=== PATIENT | male | born 1960 | race African-American/Black ===

== ENCOUNTER 2020-08-24 10:26 | Inpatient (IN) ==
[2020-08-24 11:05] LABS: Basophils # 0.1 10*3/uL (0.0-0.2); Basophils % 0.9 % (0.0-0.8); Eosinophils % 0.2 % (0.00-10.9); Hematocrit 49.9 VOL% (42.0-52.0); Hemoglobin 16.6 GM/DL (14.0-18.0); Immature Granulocytes % 5.4 %; Lymphocytes % 21.7 % (21.2-54.2); Mean Corpuscular HGB Conc 33.3 GM/DL (32-36); Mean Corpuscular Volume 90.1 FL (87-102); Mean Platelet Volume 10.3 FL (9.6-12.0); Monocytes % 13.2 % (1.7-12.7); Neutrophils % 58.6 % (38.7-73.9); Platelet Count 224 T/CUMM (130-400); Red Blood Count 5.54 MC/CUMM (3.8-5.5); Red Cell Distribution Width 13.7 % (9.3-17.3); White Blood Count 9.2 T/CUMM (4-12)
[2020-08-24 11:16] LABS: INR 1.1; PT Patient Result 11.5 SECS (9.8-11.9); Partial Thromboplastin Time 26.5 SECS (23.9-33.8)
[2020-08-24 11:24] LABS: Eosinophils 1 % (0-10); Lymphocytes 19 % (20-55); Platelet Estimate Adequate; Segmented Neutrophils 63 % (50-85); Total Cells Counted 100
[2020-08-24 11:25] LABS: Hypochromasia Slight
[2020-08-24] MEDS ORDERED: SODIUM CHLORIDE 0.9% 1,000 ML IV STA (11:30)
[2020-08-24] MEDS ORDERED: cefTRIAXone 2,000 MG in SODIUM CHLORIDE 0.9% 100 ML IV ONE (11:31)
[2020-08-24 11:33] LABS: Albumin 3.7 G/DL (3.4-5.0); Bilirubin,Total 1.1 MG/DL (0.2-1.0); Calcium 9.4 MG/DL (8.5-10.1); Osmolality,Calculated 269.4 MOS/KG (273-304); Total Protein 8.7 G/DL (6.4-8.3)
[2020-08-24 11:34] LABS: Ferritin 1633.7 ng/ml (26-388)
[2020-08-24] MEDS ORDERED: HYDROmorphone 2 MG/1 ML VIAL IV STA (11:39)
[2020-08-24] MEDS ORDERED: ONDANSETRON 4 MG/2 ML VIAL IV STA (11:39)
[2020-08-24] MEDS ORDERED: ONDANSETRON 4 MG/2 ML VIAL IV PRN (12:38)
[2020-08-24] MEDS ORDERED: LACTULOSE 20 GM/30 ML UDCUP PO PRN (12:41)
[2020-08-24] MEDS ORDERED: SODIUM CHLORIDE 0.9% 0 ML IV ONE (12:49)
[2020-08-24] MEDS ORDERED: cefTRIAXone 1,000 MG VIAL ONE (12:49)
[2020-08-24] MEDS: SODIUM CHLORIDE 0.9% 1,000 ML IV SCH (15:39)
[2020-08-24] MEDS: LORazepam 0.5 MG TABLET PO SCH ×2 (15:39→21:46)
[2020-08-24] MEDS ORDERED: INFLUENZA VIRUS VACCINE 0.5 ML SYRINGE IM ONE (17:54)
[2020-08-24] MEDS: HYDROmorphone 2 MG/1 ML VIAL IV PRN ×2 (18:27→23:19)
[2020-08-24 20:02] LABS: Bilirubin,Urine Negative (Negative); Blood, Urine Moderate mg/dL (Negative); Glucose,Urine (UA) Negative (Negative); Ketones,Urine 5 mg/dL (Negative); Mucus,Urine Occasional /LPF (Occasional); Nitrite,Urine Negative (Negative); Protein,Urine 100 MG/DL; RBC,Urine 7 /HPF (0-4); Urine Appearance CLOUDY (Clear); Urine Color Yellow (Yellow); Urine Specific Gravity 1.035 (1.001-1.035); WBC,Urine 217 /HPF (0-6)
[2020-08-24] MEDS ORDERED: FUROSEMIDE 20 MG/2 ML VIAL IV ONE (21:12)
[2020-08-24] MEDS ORDERED: GLUCAGON 1 MG VIAL IM PRN (21:17)
[2020-08-24] MEDS ORDERED: DEXTROSE 50% 25 GM/50 ML VIAL IV PRN (21:17)
[2020-08-24 21:24] LABS: Barbiturates Screen,Urine Negative (Negative); Benzodiazepines Screen,Urine Negative (Negative); Cannabinoid Screen,Urine Negative (Negative); Opiate Screen,Urine Positive (Negative); Phencyclidine Screen,Urine Negative (Negative)
[2020-08-24] MEDS: DOCUSATE SODIUM 100 MG CAPSULE PO SCH (21:46)
[2020-08-24] MEDS: ACETAMINOPHEN 325 MG TABLET PO PRN (21:46)
[2020-08-24] MEDS: levETIRAcetam 500 MG TABLET PO SCH (23:20)
[2020-08-25 01:34] LABS: Basophils # 0.1 10*3/uL (0.0-0.2); Basophils % 0.6 % (0.0-0.8); Eosinophils % 0.1 % (0.00-10.9); Hematocrit 46.4 VOL% (42.0-52.0); Hemoglobin 15.8 GM/DL (14.0-18.0); Immature Granulocytes % 0.4 %; Immature Granulocytes Absolute 0.04 #; Lymphocytes # 0.6 10*3/uL (1.4-4.0); Lymphocytes % 6.3 % (21.2-54.2); Mean Corpuscular HGB Conc 34.1 GM/DL (32-36); Mean Corpuscular Volume 88.9 FL (87-102); Mean Platelet Volume 10.4 FL (9.6-12.0); Neutrophils % 85.6 % (38.7-73.9); Platelet Count 165 T/CUMM (130-400); Red Blood Count 5.22 MC/CUMM (3.8-5.5); Red Cell Distribution Width 13.7 % (9.3-17.3); White Blood Count 9.7 T/CUMM (4-12)
[2020-08-25] MEDS: SODIUM CHLORIDE 0.9% 1,000 ML IV SCH ×3 (01:55→14:14)
[2020-08-25 01:57] LABS: Albumin 3.5 G/DL (3.4-5.0); Bilirubin,Total 0.9 MG/DL (0.2-1.0); Calcium 8.8 MG/DL (8.5-10.1); Osmolality,Calculated 268.2 MOS/KG (273-304); Total Protein 8.1 G/DL (6.4-8.3)
[2020-08-25] MEDS: HYDROmorphone 2 MG/1 ML VIAL IV PRN ×4 (03:10→21:13)
[2020-08-25] MEDS: ACETAMINOPHEN 325 MG TABLET PO PRN (05:53)
[2020-08-25] MEDS: amLODIPine 10 MG TABLET PO SCH (08:45)
[2020-08-25] MEDS: FUROSEMIDE 40 MG TABLET PO SCH (08:45)
[2020-08-25] MEDS: PANTOPRAZOLE 40 MG TABLET PO SCH (08:45)
[2020-08-25] MEDS: LORazepam 0.5 MG TABLET PO SCH ×3 (08:45→21:14)
[2020-08-25] MEDS: ASPIRIN EC 81 MG TABLET PO SCH (08:45)
[2020-08-25] MEDS: levETIRAcetam 500 MG TABLET PO SCH ×2 (08:45→21:14)
[2020-08-25] MEDS: DOCUSATE SODIUM 100 MG CAPSULE PO SCH ×2 (08:45→21:14)
[2020-08-25] MEDS: LACTULOSE 20 GM/30 ML UDCUP PO SCH ×2 (08:46→21:14)
[2020-08-25] MEDS: INSULIN REGULAR 100 UNIT/ML SUBCUT SCH ×4 (08:46→21:45)
[2020-08-25] MEDS: cefTRIAXone 500 MG in SYRINGE 1 EACH IV SCH (08:56)
[2020-08-25] MEDS: methylPREDNISolone SOD SUC 40 MG/1 ML VIAL IV SCH ×2 (11:47→17:37)
[2020-08-25] MEDS ORDERED: POLYETHYLENE GLYCOL POWDER 17 GM PACK PO ONE (18:12)
[2020-08-25] MEDS: SIMETHICONE CHEW 80 MG TABLET PO PRN (18:29)
[2020-08-26] MEDS: SODIUM CHLORIDE 0.9% 1,000 ML IV SCH ×6 (01:35→20:57)
[2020-08-26] MEDS: methylPREDNISolone SOD SUC 40 MG/1 ML VIAL IV SCH ×3 (01:49→17:44)
[2020-08-26] MEDS: SIMETHICONE CHEW 80 MG TABLET PO PRN (01:53)
[2020-08-26 05:21] LABS: Hematocrit 40.9 VOL% (42.0-52.0); Hemoglobin 13.9 GM/DL (14.0-18.0); Immature Granulocytes % 0.3 %; Immature Granulocytes Absolute 0.02 #; Lymphocytes # 0.3 10*3/uL (1.4-4.0); Lymphocytes % 3.6 % (21.2-54.2); Mean Corpuscular Volume 90.1 FL (87-102); Mean Platelet Volume 10.9 FL (9.6-12.0); Monocytes % 5.2 % (1.7-12.7); Neutrophils % 90.9 % (38.7-73.9); Platelet Count 106 T/CUMM (130-400); Red Blood Count 4.54 MC/CUMM (3.8-5.5); Red Cell Distribution Width 13.7 % (9.3-17.3); White Blood Count 6.9 T/CUMM (4-12)
[2020-08-26] MEDS: HYDROmorphone 2 MG/1 ML VIAL IV PRN ×2 (05:30→11:43)
[2020-08-26 05:40] LABS: Band Neutrophils 1 % (0-10); Hypochromasia Slight; Lymphocytes 7 % (20-55); Segmented Neutrophils 91 % (50-85); Total Cells Counted 100
[2020-08-26 05:41] LABS: Microcytosis Slight; Platelet Estimate Decreased
[2020-08-26 05:46] LABS: Albumin 3.1 G/DL (3.4-5.0); Bilirubin,Total 0.7 MG/DL (0.2-1.0); Calcium 8.4 MG/DL (8.5-10.1); Total Protein 7.1 G/DL (6.4-8.3)
[2020-08-26] MEDS: INSULIN REGULAR 100 UNIT/ML SUBCUT SCH ×4 (07:25→22:24)
[2020-08-26] MEDS: ASPIRIN EC 81 MG TABLET PO SCH (08:34)
[2020-08-26] MEDS: FUROSEMIDE 40 MG TABLET PO SCH (08:34)
[2020-08-26] MEDS: LORazepam 0.5 MG TABLET PO SCH ×3 (08:34→20:53)
[2020-08-26] MEDS: DOCUSATE SODIUM 100 MG CAPSULE PO SCH ×2 (08:34→20:54)
[2020-08-26] MEDS: amLODIPine 10 MG TABLET PO SCH (08:34)
[2020-08-26] MEDS: levETIRAcetam 500 MG TABLET PO SCH ×2 (08:34→20:56)
[2020-08-26] MEDS: PANTOPRAZOLE 40 MG TABLET PO SCH (08:34)
[2020-08-26] MEDS: LACTULOSE 20 GM/30 ML UDCUP PO SCH ×2 (08:35→22:23)
[2020-08-26] MEDS: cefTRIAXone 500 MG in SYRINGE 1 EACH IV SCH (10:31)
[2020-08-26] MEDS: ACETAMINOPHEN 325 MG TABLET PO PRN ×2 (13:15→18:52)
[2020-08-27] MEDS: HYDROmorphone 2 MG/1 ML VIAL IV PRN ×2 (00:12→14:47)
[2020-08-27] MEDS: methylPREDNISolone SOD SUC 40 MG/1 ML VIAL IV SCH ×3 (02:58→17:34)
[2020-08-27] MEDS: SODIUM CHLORIDE 0.9% 1,000 ML IV SCH ×2 (04:48→14:50)
[2020-08-27 07:09] LABS: Hematocrit 39.3 VOL% (42.0-52.0); Hemoglobin 13.1 GM/DL (14.0-18.0); Immature Granulocytes % 0.2 %; Immature Granulocytes Absolute 0.01 #; Lymphocytes # 0.2 10*3/uL (1.4-4.0); Mean Corpuscular HGB Conc 33.3 GM/DL (32-36); Mean Corpuscular Volume 89.1 FL (87-102); Monocytes % 8.4 % (1.7-12.7); Neutrophils % 87.4 % (38.7-73.9); Red Blood Count 4.41 MC/CUMM (3.8-5.5); Red Cell Distribution Width 13.6 % (9.3-17.3); White Blood Count 5.9 T/CUMM (4-12)
[2020-08-27 07:16] LABS: Platelet Count 92 T/CUMM (130-400)
[2020-08-27 07:33] LABS: Bilirubin,Total 1.3 MG/DL (0.2-1.0); Calcium 8.6 MG/DL (8.5-10.1); Total Protein 6.7 G/DL (6.4-8.3)
[2020-08-27] MEDS: LACTATED RINGERS 1,000 ML IV SCH (07:37)
[2020-08-27 07:39] LABS: Hypochromasia Slight; Lymphocytes 4 % (20-55); Microcytosis Slight; Platelet Estimate Decreased; Segmented Neutrophils 91 % (50-85); Total Cells Counted 100
[2020-08-27] MEDS: INSULIN REGULAR 100 UNIT/ML SUBCUT SCH ×2 (07:39→11:30)
[2020-08-27] MEDS: cefTRIAXone 500 MG in SYRINGE 1 EACH IV SCH (08:06)
[2020-08-27] MEDS ORDERED: propofoL 200 MG/20 ML VIAL IV ONE (09:00)
[2020-08-27] MEDS ORDERED: LIDOCAINE 100 MG/5 ML SYRINGE ONE (09:00)
[2020-08-27] MEDS: DOCUSATE SODIUM 100 MG CAPSULE PO SCH ×2 (09:14→21:09)
[2020-08-27] MEDS: LORazepam 0.5 MG TABLET PO SCH ×3 (09:14→21:09)
[2020-08-27] MEDS: levETIRAcetam 500 MG TABLET PO SCH ×2 (14:46→21:09)
[2020-08-27] MEDS: FUROSEMIDE 40 MG TABLET PO SCH (14:47)
[2020-08-27] MEDS: amLODIPine 10 MG TABLET PO SCH (14:49)
[2020-08-27] MEDS: ASPIRIN EC 81 MG TABLET PO SCH (14:50)
[2020-08-27] MEDS: LACTULOSE 20 GM/30 ML UDCUP PO SCH ×2 (14:50→21:09)
[2020-08-27] MEDS: PANTOPRAZOLE 40 MG TABLET PO SCH (14:50)
[2020-08-27] MEDS: SIMETHICONE CHEW 80 MG TABLET PO PRN (21:09)
[2020-08-28] MEDS: HYDROmorphone 2 MG/1 ML VIAL IV PRN ×3 (02:08→18:02)
[2020-08-28] MEDS: methylPREDNISolone SOD SUC 40 MG/1 ML VIAL IV SCH ×3 (02:12→18:30)
[2020-08-28] MEDS: LACTATED RINGERS 1,000 ML IV SCH (10:39)
[2020-08-28] MEDS: SODIUM CHLORIDE 0.9% 1,000 ML IV SCH ×2 (10:40→15:43)
[2020-08-28] MEDS: DOCUSATE SODIUM 100 MG CAPSULE PO SCH ×2 (10:42→22:45)
[2020-08-28] MEDS: LORazepam 0.5 MG TABLET PO SCH ×2 (10:42→15:43)
[2020-08-28] MEDS: levETIRAcetam 500 MG TABLET PO SCH ×2 (10:44→22:45)
[2020-08-28] MEDS: FUROSEMIDE 40 MG TABLET PO SCH (10:44)
[2020-08-28] MEDS: PANTOPRAZOLE 40 MG TABLET PO SCH (10:45)
[2020-08-28] MEDS: ASPIRIN EC 81 MG TABLET PO SCH (10:45)
[2020-08-28] MEDS: amLODIPine 10 MG TABLET PO SCH (10:50)
[2020-08-28] MEDS: LACTULOSE 20 GM/30 ML UDCUP PO SCH ×2 (10:51→22:45)
[2020-08-28] MEDS: cefTRIAXone 500 MG in SYRINGE 1 EACH IV SCH (10:51)
[2020-08-28] MEDS ORDERED: ACETAMINOPHEN 500 MG TABLET PO PRN (21:38)
[2020-08-28] MEDS: KETOROLAC 15 MG/1 ML VIAL IV SCH (22:45)
[2020-08-29] MEDS: methylPREDNISolone SOD SUC 40 MG/1 ML VIAL IV SCH ×3 (02:38→17:36)
[2020-08-29] MEDS: LORazepam 0.5 MG TABLET PO SCH ×3 (02:58→20:55)
[2020-08-29] MEDS: KETOROLAC 15 MG/1 ML VIAL IV SCH ×3 (05:07→21:00)
[2020-08-29] MEDS: SODIUM CHLORIDE 0.9% 1,000 ML IV SCH ×2 (05:07→17:36)
[2020-08-29] MEDS: SIMETHICONE CHEW 80 MG TABLET PO PRN (05:16)
[2020-08-29 06:50] LABS: Basophils % 0.1 % (0.0-0.8); Hemoglobin 13.6 GM/DL (14.0-18.0); Immature Granulocytes % 0.7 %; Immature Granulocytes Absolute 0.06 #; Lymphocytes # 0.5 10*3/uL (1.4-4.0); Lymphocytes % 5.9 % (21.2-54.2); Mean Corpuscular Volume 88.3 FL (87-102); Mean Platelet Volume 11.3 FL (9.6-12.0); Monocytes % 9.8 % (1.7-12.7); Neutrophils % 83.5 % (38.7-73.9); Platelet Count 112 T/CUMM (130-400); Red Blood Count 4.53 MC/CUMM (3.8-5.5); Red Cell Distribution Width 13.4 % (9.3-17.3); White Blood Count 8.4 T/CUMM (4-12)
[2020-08-29 08:09] LABS: Bilirubin,Total 0.5 MG/DL (0.2-1.0); Calcium 8.8 MG/DL (8.5-10.1); Osmolality,Calculated 275.7 MOS/KG (273-304); Risk Ratio 2.17; Total Protein 6.8 G/DL (6.4-8.3)
[2020-08-29] MEDS: lisinopriL 10 MG TABLET PO SCH (08:18)
[2020-08-29] MEDS: levETIRAcetam 500 MG TABLET PO SCH ×2 (08:19→20:55)
[2020-08-29] MEDS: PANTOPRAZOLE 40 MG TABLET PO SCH (08:19)
[2020-08-29] MEDS: ASPIRIN EC 81 MG TABLET PO SCH (08:19)
[2020-08-29] MEDS: FUROSEMIDE 40 MG TABLET PO SCH (08:19)
[2020-08-29] MEDS: DOCUSATE SODIUM 100 MG CAPSULE PO SCH ×2 (08:19→20:55)
[2020-08-29] MEDS: amLODIPine 10 MG TABLET PO SCH (08:19)
[2020-08-29] MEDS: LACTULOSE 20 GM/30 ML UDCUP PO SCH ×2 (08:20→22:06)
[2020-08-29] MEDS: cefTRIAXone 500 MG in SYRINGE 1 EACH IV SCH (08:24)
[2020-08-29] MEDS: HYDROmorphone 2 MG/1 ML VIAL IV PRN (13:15)
[2020-08-30] MEDS: SIMETHICONE CHEW 80 MG TABLET PO PRN ×2 (02:27→21:07)
[2020-08-30] MEDS: methylPREDNISolone SOD SUC 40 MG/1 ML VIAL IV SCH ×5 (02:27→17:35)
[2020-08-30] MEDS: SODIUM CHLORIDE 0.9% 1,000 ML IV SCH ×3 (04:16→16:15)
[2020-08-30] MEDS: KETOROLAC 15 MG/1 ML VIAL IV SCH ×4 (05:00→21:08)
[2020-08-30 06:38] LABS: Albumin 3.2 G/DL (3.4-5.0); Osmolality,Calculated 280.4 MOS/KG (273-304); Total Protein 6.9 G/DL (6.4-8.3)
[2020-08-30] MEDS: levETIRAcetam 500 MG TABLET PO SCH ×2 (08:23→21:08)
[2020-08-30] MEDS: POTASSIUM CHLORIDE 20 MEQ TABLET PO PRN ×4 (08:24→16:13)
[2020-08-30] MEDS: FUROSEMIDE 40 MG TABLET PO SCH (08:24)
[2020-08-30] MEDS: amLODIPine 10 MG TABLET PO SCH (08:24)
[2020-08-30] MEDS: DOCUSATE SODIUM 100 MG CAPSULE PO SCH ×2 (08:24→21:08)
[2020-08-30] MEDS: lisinopriL 10 MG TABLET PO SCH (08:24)
[2020-08-30] MEDS: LORazepam 0.5 MG TABLET PO SCH ×2 (08:24→21:07)
[2020-08-30] MEDS: ASPIRIN EC 81 MG TABLET PO SCH (08:24)
[2020-08-30] MEDS: PANTOPRAZOLE 40 MG TABLET PO SCH (08:24)
[2020-08-30] MEDS: cefTRIAXone 500 MG in SYRINGE 1 EACH IV SCH (08:25)
[2020-08-30] MEDS: LACTULOSE 20 GM/30 ML UDCUP PO SCH ×2 (08:25→21:13)
[2020-08-30] MEDS ORDERED: ALBUTEROL 2.5 MG/3 ML NEB RESP TX PRN (13:56)
[2020-08-30] MEDS: HYDROmorphone 2 MG/1 ML VIAL IV PRN (16:13)
[2020-08-31] MEDS: methylPREDNISolone SOD SUC 40 MG/1 ML VIAL IV SCH ×3 (03:08→18:22)
[2020-08-31] MEDS: KETOROLAC 15 MG/1 ML VIAL IV SCH ×3 (05:22→21:33)
[2020-08-31] MEDS: SODIUM CHLORIDE 0.9% 1,000 ML IV SCH ×2 (07:39→20:27)
[2020-08-31] MEDS: SIMETHICONE CHEW 80 MG TABLET PO PRN ×2 (07:41→17:19)
[2020-08-31] MEDS: levETIRAcetam 500 MG TABLET PO SCH ×2 (08:26→20:02)
[2020-08-31] MEDS: LACTULOSE 20 GM/30 ML UDCUP PO SCH ×3 (08:26→20:26)
[2020-08-31] MEDS: LORazepam 0.5 MG TABLET PO SCH ×2 (08:26→20:02)
[2020-08-31] MEDS: ASPIRIN EC 81 MG TABLET PO SCH (08:26)
[2020-08-31] MEDS: DOCUSATE SODIUM 100 MG CAPSULE PO SCH ×2 (08:26→20:02)
[2020-08-31] MEDS: amLODIPine 10 MG TABLET PO SCH (08:26)
[2020-08-31] MEDS: PANTOPRAZOLE 40 MG TABLET PO SCH (08:27)
[2020-08-31] MEDS: cefTRIAXone 500 MG in SYRINGE 1 EACH IV SCH (08:27)
[2020-08-31] MEDS: FUROSEMIDE 40 MG TABLET PO SCH (08:27)
[2020-08-31] MEDS: lisinopriL 10 MG TABLET PO SCH (08:27)
[2020-08-31] MEDS: LIDOCAINE 5% PATCH TRANSDERM SCH (14:33)
[2020-08-31] MEDS: traMADol 50 MG TABLET PO PRN ×2 (14:33→20:02)
[2020-09-01] MEDS: methylPREDNISolone SOD SUC 40 MG/1 ML VIAL IV SCH ×4 (02:15→18:13)
[2020-09-01 05:40] LABS: Eosinophils % 0.9 % (0.00-10.9); Hematocrit 40.3 VOL% (42.0-52.0); Hemoglobin 13.4 GM/DL (14.0-18.0); Immature Granulocytes % 0.7 %; Immature Granulocytes Absolute 0.03 #; Lymphocytes # 0.6 10*3/uL (1.4-4.0); Lymphocytes % 13.6 % (21.2-54.2); Mean Corpuscular HGB Conc 33.3 GM/DL (32-36); Mean Corpuscular Volume 90.4 FL (87-102); Mean Platelet Volume 10.9 FL (9.6-12.0); Monocytes % 12.7 % (1.7-12.7); Neutrophils % 72.1 % (38.7-73.9); Platelet Count 157 T/CUMM (130-400); Red Blood Count 4.46 MC/CUMM (3.8-5.5); Red Cell Distribution Width 13.8 % (9.3-17.3); White Blood Count 4.6 T/CUMM (4-12)
[2020-09-01] MEDS: KETOROLAC 15 MG/1 ML VIAL IV SCH ×3 (05:57→16:45)
[2020-09-01 06:04] LABS: Albumin 2.8 G/DL (3.4-5.0); Bilirubin,Total 0.5 MG/DL (0.2-1.0); Calcium 8.8 MG/DL (8.5-10.1); Osmolality,Calculated 281.1 MOS/KG (273-304); Total Protein 6.3 G/DL (6.4-8.3)
[2020-09-01] MEDS: SIMETHICONE CHEW 80 MG TABLET PO PRN ×3 (08:29→18:07)
[2020-09-01] MEDS: lisinopriL 10 MG TABLET PO SCH (08:29)
[2020-09-01] MEDS: FUROSEMIDE 40 MG TABLET PO SCH (08:29)
[2020-09-01] MEDS: ASPIRIN EC 81 MG TABLET PO SCH (08:29)
[2020-09-01] MEDS: PANTOPRAZOLE 40 MG TABLET PO SCH (08:29)
[2020-09-01] MEDS: levETIRAcetam 500 MG TABLET PO SCH ×2 (08:30→20:44)
[2020-09-01] MEDS: DOCUSATE SODIUM 100 MG CAPSULE PO SCH ×2 (08:30→20:44)
[2020-09-01] MEDS: LORazepam 0.5 MG TABLET PO SCH ×2 (08:30→20:44)
[2020-09-01] MEDS: POTASSIUM CHLORIDE 20 MEQ TABLET PO PRN (08:30)
[2020-09-01] MEDS: amLODIPine 10 MG TABLET PO SCH (08:30)
[2020-09-01] MEDS: traMADol 50 MG TABLET PO PRN ×2 (08:31→20:44)
[2020-09-01] MEDS: LACTULOSE 20 GM/30 ML UDCUP PO SCH ×2 (08:31→20:47)
[2020-09-01] MEDS: SODIUM CHLORIDE 0.9% 1,000 ML IV SCH ×2 (08:49→20:47)
[2020-09-01] MEDS: cefTRIAXone 500 MG in SYRINGE 1 EACH IV SCH (08:50)
[2020-09-01] MEDS ORDERED: LIDOCAINE 5% PATCH TRANSDERM SCH (14:35)
[2020-09-01] MEDS: LIDOCAINE 5% PATCH TRANSDERM SCH (14:44)
[2020-09-01] MEDS ORDERED: POTASSIUM CHLORIDE 20 MEQ TABLET PO ONE (22:39)
[2020-09-02] MEDS: methylPREDNISolone SOD SUC 40 MG/1 ML VIAL IV SCH ×2 (01:56→09:33)
[2020-09-02] MEDS: KETOROLAC 15 MG/1 ML VIAL IV SCH ×2 (01:57→09:46)
[2020-09-02 06:26] LABS: Eosinophils % 0.2 % (0.00-10.9); Hematocrit 41.6 VOL% (42.0-52.0); Hemoglobin 14.1 GM/DL (14.0-18.0); Immature Granulocytes % 0.4 %; Immature Granulocytes Absolute 0.02 #; Lymphocytes # 0.4 10*3/uL (1.4-4.0); Lymphocytes % 8.8 % (21.2-54.2); Mean Corpuscular HGB Conc 33.9 GM/DL (32-36); Mean Corpuscular Volume 89.3 FL (87-102); Mean Platelet Volume 10.4 FL (9.6-12.0); Monocytes % 8.4 % (1.7-12.7); Neutrophils % 82.2 % (38.7-73.9); Platelet Count 167 T/CUMM (130-400); Red Blood Count 4.66 MC/CUMM (3.8-5.5); Red Cell Distribution Width 13.8 % (9.3-17.3); White Blood Count 4.6 T/CUMM (4-12)
[2020-09-02 06:35] LABS: Alanine Aminotransferase 26 U/L (16-61); Albumin 2.8 G/DL (3.4-5.0); Alkaline Phosphatase 136 U/L (45-117); Aspartate Amino Transferase 26 U/L (0-37); Bilirubin,Total < 0.39 MG/DL (0.2-1.0); Blood Urea Nitrogen 10 MG/DL (7-18); Calcium 8.7 MG/DL (8.5-10.1); Estimated Glom Filtration Rate 130 ML/MIN; Glucose 111 MG/DL (74-106); Total Protein 6.4 G/DL (6.4-8.3)
[2020-09-02] MEDS ORDERED: POTASSIUM CHLORIDE 20 MEQ TABLET PO SCH (09:00)
[2020-09-02] MEDS: lisinopriL 10 MG TABLET PO SCH (09:26)
[2020-09-02] MEDS: FUROSEMIDE 40 MG TABLET PO SCH (09:26)
[2020-09-02] MEDS: LORazepam 0.5 MG TABLET PO SCH (09:26)
[2020-09-02] MEDS: amLODIPine 10 MG TABLET PO SCH (09:26)
[2020-09-02] MEDS: LACTULOSE 20 GM/30 ML UDCUP PO SCH ×2 (09:27→09:39)
[2020-09-02] MEDS: DOCUSATE SODIUM 100 MG CAPSULE PO SCH (09:27)
[2020-09-02] MEDS: ASPIRIN EC 81 MG TABLET PO SCH (09:27)
[2020-09-02] MEDS: levETIRAcetam 500 MG TABLET PO SCH (09:28)
[2020-09-02] MEDS: traMADol 50 MG TABLET PO PRN (09:28)
[2020-09-02] MEDS: PANTOPRAZOLE 40 MG TABLET PO SCH (09:28)
[2020-09-02] MEDS: SIMETHICONE CHEW 80 MG TABLET PO PRN (09:46)
[2020-09-02 12:32] VITALS: BP 138/79
[2020-09-02] MEDS: SODIUM CHLORIDE 0.9% 1,000 ML IV SCH (13:19)
== END 2020-09-02 15:40 | DRG 392 ==
LOC: N.ED 10:26 → N.EDINP 12:38 → N.4E 15:09
PROVIDERS: ADMIT Internal Medicine; ATTEND Internal Medicine